=== PATIENT | female | born 1975 | race Caucasian/White ===

== ENCOUNTER 2016-03-18 20:22 | Emergency (ER) | payer MEDICAID ==
[2016-03-18 20:57] VITALS: BMI 38.4
--- NOTE | 2016-03-18 21:35 | EDPRACDOC ---
- General Information Information Source: Patient - History of Present Illness HPI: COUGH, CONGESTION FOR 4 DAYS WITH FEVER LAST NIGHT. SOB. RIGHT SIDE CHEST CHEST PAIN, HEADACHE, NAUSEA. HAD RIGHT EAR SURGERY AT [facility] WITH BONE SHAVING. SINUS SURGERY 2 MONTHS BEFORE EAR SURGERY. H/O COPD. BAD SEASONAL ALLERGIES. GETTING NUCALA LEUKOTRIENE DOROTEO. PT IS REMODELING A HOUSE, THINGS HAVE BEEN IN HOUSE FOR 20 YEARS. <Bhargav Wong - Last Filed: 03/18/16 21:51> <David Bonilla - Last Filed: 03/19/16 00:03> - General Information Chief Complaint: Dyspnea/Resp distress Stated Complaint: SHORTNESS OF BREATH Time Seen by Provider: 03/18/16 21:31 Home Medications: Home Medications Montelukast Sodium [Singulair] 10 mg PO HS 11/03/12 Albuterol Sulfate [Ventolin Hfa] 2 puff INH Q4H PRN 02/24/14 Cetirizine HCl [Zyrtec] 10 mg PO DAILY 03/25/14 Beclomethasone Dipropionate [Qvar] 2 puff INH BID 12/27/15 Fluconazole [Diflucan] 150 mg PO ONCE #1 tab 12/27/15 Lansoprazole [Prevacid] 30 mg PO DAILY 12/27/15 Levofloxacin [Levaquin] 750 mg PO DAILY #5 tablet 12/27/15 Mometasone/Formoterol [Dulera 200 Mcg/5 Mcg Inhaler] 13 gm IH BID 12/27/15 Ondansetron [Zofran Odt] 4 mg PO Q6H PRN #20 tab.rapdis 12/27/15 Albuterol Sulfate [Proair Hfa] 2 puff INH Q2H PRN #1 inhaler 03/18/16 Prednisone [Deltasone, Orasone] 50 mg PO DAILY #5 tab 03/18/16 Oxycodone HCl [Roxicodone] 5 mg PO Q4-6H PRN #15 tablet 03/19/16 Allergies/Adverse Reactions: Allergies Allergy/AdvReac Type Severity Reaction Status Date / Time acetaminophen [From Percocet] Allergy Hives* Verified 03/18/16 20:50 oxycodone [From Percocet] Allergy Hives* Verified 03/18/16 20:50 - Treatment Prior to ED Arrival Reported Medications/Treatment LAYER OUT PLATE GLASS Treated With Medication LAYER OUT PLATE GLASS YES Ibuprofen/Acetaminophen (Dose/ motrin 400 mg @ 1950 Time) Medications LAYER OUT PLATE GLASS (Medication/ albuterol neb treatments (2) @ 1945 Dose/Time) <Bhargav Wong - Last Filed: 03/18/16 21:51> - Treatment Prior to ED Arrival Reported Medications/Treatment LAYER OUT PLATE GLASS Treated With Medication LAYER OUT PLATE GLASS YES Ibuprofen/Acetaminophen (Dose/ motrin 400 mg @ 1950 Time) Medications LAYER OUT PLATE GLASS (Medication/ albuterol neb treatments (2) @ 1945 Dose/Time) <David Bonilla - Last Filed: 03/19/16 00:03> ED Past Medical History - History Reviewed Yes Nurses notes reviewed and agree except as marked - Patient Medical History Respiratory History: Reports: Asthma, COPD (ON HOME O2 2L NC), Chronic Bronchitis, Pneumonia GI/ History: Reports: Gastroesophageal Reflux, Diverticulosis Musculoskeletal History: Reports: Rheumatoid Arthritis (?) Psychological History: Reports: Anxiety. Denies: Depression, Substance Use Disorder Systemic History: Reports: Anemia. Denies: Diabetes Surgical History: Reports: Other (BTL, CSXN) - Family Medical History Reports: Diabetes (Mother-both grandfathers), Cardiac Disorders (grandfathers) - Social Medical History Smoking Status: Former smoker Social History: Denies: Substance Use Disorder <Bhargav Wong - Last Filed: 03/18/16 21:51> EDM Review of Systems - Review of Systems ROS Negative Except as Marked: Yes All systems reviewed and were negative except as marked Constitutional: No Symptoms Reported Mouth: No Symptoms Reported Respiratory: Cough, Shortness of Breath Cardiovascular: Chest Pain Gastrointestinal: No Symptoms Reported Genitourinary: No Symptoms Reported <Bhargav Wong - Last Filed: 03/18/16 21:51> - Physical Exam Constitutional: Alert (Awake), Writhing (RIGHT SIDE CHEST CRAMP STARTED IN ED.) Oriented to: Time, Person, Place Last recorded Vital Signs: Last Vital Signs Temp 99.4 F 03/18/16 20:51 Pulse 137 H 03/18/16 21:17 Resp 23 03/18/16 21:17 BP 131/102 H 03/18/16 21:17 Pulse Ox 98 03/18/16 21:17 Oxygen Pulse Oxygen Saturation 98 O2 Device Room Air Oxygen Flow Rate Fraction of Inspired Oxygen ( FIO2) - HEENT Head: Normal ( normocephalic) Eye Exam: Normal (PERRL, EOMI, Sclera white) Oropharynx: Normal (Pharynx:Moist without exudate,Gums-no swelling) Nose: No Symptoms Reported (septum midline) Neck: Normal (FROM, trachea at midline) - Respiratory/Cardiovascular Respiratory: Wheezes (B/L) Cardiovascular: Tachycardia - GI Auscultation: Normal (NABS) Palpation: Normal (Soft,No rebound or guarding, non distended) Tenderness: Non tender Ovalle's Sign: Negative - Musculoskeletal Back: Normal (Non-Tender) Extremities: Normal (Normal tone, Pulses 2+ No cyanosis or edema, FROM) - Integumentary Skin: Normal, Warm, Dry Lymphatics: Normal (no adenopathy) - Neurologic Memory Impaired: Normal Motor Function: Normal (Normal tone, Pulses 2+ No cyanosis or edema, FROM) Cranial Nerve: Normal (CN II-X11 intact sensation, strength 5/5) Cerebellar: Normal Mood Description: Normal Perception: Normal <Bhargav Wong - Last Filed: 03/18/16 21:51> - Physical Exam Last recorded Vital Signs: Last Vital Signs Temp 99.4 F 03/18/16 20:51 Pulse 104 03/18/16 22:42 Resp 22 03/18/16 22:42 BP 107/59 L 03/18/16 22:42 Pulse Ox 95 03/18/16 22:42 Oxygen Pulse Oxygen Saturation 95 O2 Device Room Air Oxygen Flow Rate Fraction of Inspired Oxygen ( FIO2) <David Bonilla - Last Filed: 03/19/16 00:03> ED SOB MDM - Results Result Diagrams: 03/18/16 21:29 03/18/16 21:29 - EKG EKG #1 EKG Time: 21:48 -: Yes EKG interpreted by me Rate: bpm: 119 [place]: Normal Rhythm: ST Block: None Hypertrophy: None ST: Normal Comments: NORMAL EKG <Bhargav Wong - Last Filed: 03/18/16 21:51> - Results Result Diagrams: 03/18/16 21:29 03/18/16 21:29 Results: WBC 7.7 xk/uL (3.8-10.8) 03/18/16 21:29 RBC 4.94 xM/uL (4.20-5.40) 03/18/16 21:29 Hgb 11.3 g/dL (12.0-16.0) L 03/18/16 21:29 Hct 35.5 % (36-47) L 03/18/16 21:29 MCV 72 fL (81-99) L 03/18/16 21:29 MCH 22.9 pg (27-32) L 03/18/16 21: MCHC 31.9 g/dl (33-36) L 03/18/16 21:29 RDW 17.8 % (11.5-14.5) H 03/18/16 21:29 Plt Count 333 xk/uL (130-400) 03/18/16 21: MPV 7.9 fL (7.4-10.4) 03/18/16 21: Neut % (Auto) 76.7 % (45-76) H 03/18/16 21: Lymph % (Auto) 14.6 % (17-44) L 03/18/16 21: [place] % (Auto) 8.0 % (3-10) 03/18/16 21:29 Eos % (Auto) 0.2 % (0-5) 03/18/16 21:29 Baso % (Auto) 0.5 % (0-2) 03/18/16 21:29 Absolute Neuts (auto) 5.85 xk/uL (1.7-8.2) 03/18/16 21: Absolute Lymphs (auto) 1.08 xk/uL (0.65-4.75) 03/18/16 21:29 Platelet Estimate Norm (NORMAL) 03/18/16 21:29 RBC Morphology 1+ aniso 1+ hypo 1+ micro 03/18/16 21:29 RBC Morphology 1+ aniso 1+ hypo 1+ micro 03/18/16 21:29 RBC Morphology 1+ aniso 1+ hypo 1+ micro 03/18/16 21:29 PT 10.1 SEC (9.2-11.2) 03/18/16 21: INR 1.0 03/18/16 21:29 APTT 25.4 SEC (22-35) 03/18/16 21:29 D-Dimer Quant (PE/DVT) 481 ng/mL (<500) 03/18/16 21:29 Sodium 139 mEq/L (137-146) 03/18/16 21:29 Potassium 3.7 mEq/L (3.5-5.1) 03/18/16 21:29 Chloride 105 mEq/L (98-107) 03/18/16 21:29 Carbon Dioxide 22 mMOL/L (22-33) 03/18/16 21:29 Anion Gap 16 mEq/L (8-16) 03/18/16 21:29 BUN 8 MG/DL (7-17) 03/18/16 21:29 Creatinine 0.80 MG/DL (0.52-1.04) 03/18/16 21:29 Estimated GFR (MDRD) > 60 mL/min (>=60) 03/18/16 21:29 Glucose 109 MG/DL (70-99) H 03/18/16 21:29 Calculated Osmolality 267 MOs/Kg (270-290) L 03/18/16 21:29 Calcium 8.2 MG/DL (8.4-10.2) L 03/18/16 21:29 Corrected Calcium 8.5 MG/DL (8.4-10.2) 03/18/16 21:29 Total Bilirubin 0.4 MG/DL (0.2-1.3) 03/18/16 21:29 AST 23 IU/L (14-36) 03/18/16 21:29 ALT 24 IU/L (9-52) 03/18/16 21:29 Alkaline Phosphatase 93 IU/L (38-126) 03/18/16 21:29 Troponin I < 0.01 ng/mL (<.04) 03/18/16 21:29 [id number]-[id number]-Tigusxlwyox Pept 98 pg/mL (0-450) 03/18/16 21:29 Total Protein 7.1 G/DL (6.3-8.2) 03/18/16 21:29 Albumin 3.7 G/DL (3.5-5.0) 03/18/16 21:29 Lab Results 03/18/16 03/18/16 03/18/16 21:29 21:29 21:29 WBC 7.7 RBC 4.94 Hgb 11.3 L Hct 35.5 L MCV 72 L MCH 22.9 L MCHC 31.9 L RDW 17.8 H Plt Count 333 MPV 7.9 Neut % (Auto) 76.7 H Lymph % (Auto) 14.6 L [place] % (Auto) 8.0 Eos % (Auto) 0.2 Baso % (Auto) 0.5 Absolute Neuts (auto) 5.85 Absolute Lymphs (auto) 1.08 Platelet Estimate Norm RBC Morphology 1+ micro PT 10.1 INR 1.0 APTT 25.4 D-Dimer Quant (PE/DVT) 481 Sodium Potassium Chloride Carbon Dioxide Anion Gap BUN Creatinine Estimated GFR (MDRD) Glucose Calculated Osmolality Calcium Corrected Calcium Total Bilirubin AST ALT Alkaline Phosphatase Troponin I [id number]-Otzogtzzwsj Pept Total Protein Albumin 03/18/16 21:29 WBC RBC Hgb Hct MCV MCH MCHC RDW Plt Count MPV Neut % (Auto) Lymph % (Auto) [place] % (Auto) Eos % (Auto) Baso % (Auto) Absolute Neuts (auto) Absolute Lymphs (auto) Platelet Estimate RBC Morphology PT INR APTT D-Dimer Quant (PE/DVT) Sodium 139 Potassium 3.7 Chloride 105 Carbon Dioxide 22 Anion Gap 16 BUN 8 Creatinine 0.80 Estimated GFR (MDRD) > 60 Glucose 109 H Calculated Osmolality 267 L Calcium 8.2 L Corrected Calcium 8.5 Total Bilirubin 0.4 AST 23 ALT 24 Alkaline Phosphatase 93 Troponin I < 0.01 Xzr-[id number]-Whxccuajsvm Pept 98 Total Protein 7.1 Albumin 3.7 <David Bonilla - Last Filed: 03/19/16 00:03> - Departure Yes I personally saw and evaluated the patient. Disposition: Home <Bhargav Wong - Last Filed: 03/18/16 21:51> Decision Time to Discharge: 23:58 - Departure Yes I personally saw and evaluated the patient. Disposition: Home Education/Counseling Given To: Patient Education/Counseling Given Regarding: Diagnosis, Treatment, Prognosis, Follow Up <David Bonilla - Last Filed: 03/19/16 00:03> - Departure Condition: Stable Final Diagnosis: Acute exacerbation of chronic obstructive airways disease, Febrile illness Instructions: COPD (Chronic Obstructive Pulmonary Disease) (ED) Referrals: Keri Ruiz MD [Primary Care Provider] - Call for Appointment Prescriptions: Albuterol Sulfate [Proair Hfa] 2 puff INH Q2H PRN #1 inhaler PRN Reason: Dyspnea Oxycodone HCl [Roxicodone] 5 mg PO Q4-6H PRN #15 tablet PRN Reason: Breakthrough Pain Prednisone [Deltasone, Orasone] 50 mg PO DAILY #5 tab
[2016-03-18] MEDS ORDERED: METHYLPREDNISOLONE 125 MG/2 ML VIAL IV ONE (21:38)
[2016-03-18 21:45] LABS: AUTOMATED BASOPHIL 0.5 % (0-2); AUTOMATED EOSINOPHIL 0.2 % (0-5); AUTOMATED LYMPH 14.6 % (17-44); AUTOMATED NEUTROPHIL 76.7 % (45-76); MPV 7.9 fL (7.4-10.4)
[2016-03-18] MEDS ORDERED: HYDROmorphone 1 MG INJECTION IV ONE (21:46)
[2016-03-18 21:55] LABS: PARTIAL THROMB. TIME 25.4 SEC (22-35)
[2016-03-18 21:58] LABS: BLOOD UREA NITROGEN 8 MG/DL (7-17); CALC CORRECTED 8.5 MG/DL (8.4-10.2); CALCIUM 8.2 MG/DL (8.4-10.2); CALCULATED OSMOLALITY 267 MOs/Kg (270-290); CHLORIDE 105 mEq/L (98-107); GLUCOSE 109 MG/DL (70-99); SODIUM LEVEL 139 mEq/L (137-146); TOTAL PROTEIN 7.1 G/DL (6.3-8.2)
--- NOTE | 2016-03-18 21:59 | DIRPT ---
CLINICAL DATA: Patient with shortness of breath. COPD. Fever. EXAM: PORTABLE CHEST 1 VIEW COMPARISON: Chest radiograph 12/27/2015 FINDINGS: Stable cardiac and mediastinal contours. No consolidative pulmonary opacities. No pleural effusion or pneumothorax. Regional skeleton is unremarkable. IMPRESSION: No acute cardiopulmonary process. Electronically Signed By: Romeo Thomason M.D. On: 03/18/2016 21:56
--- NOTE | 2016-03-18 23:46 | DIRPT ---
CLINICAL DATA: Acute onset of dyspnea, fever and generalized chest pain and tightness. Cough and nasal congestion. Initial encounter. EXAM: CT CHEST WITHOUT CONTRAST TECHNIQUE: Multidetector CT imaging of the chest was performed following the standard protocol without IV contrast. COMPARISON: CT of the chest performed 12/27/2015, and chest radiograph performed earlier today at 9:38 p.m. FINDINGS: Mild bilateral atelectasis or scarring is noted. The lungs are otherwise clear. No pleural effusion or pneumothorax is seen. No masses are identified. The mediastinum is grossly unremarkable in appearance. No mediastinal lymphadenopathy is seen. No pericardial effusion is identified. The great vessels are grossly unremarkable in appearance. The visualized portions of the thyroid gland are unremarkable. No axillary lymphadenopathy is seen. The visualized portions of the liver and spleen are grossly unremarkable. The visualized portions of the gallbladder, pancreas and adrenal glands are within normal limits. No acute osseous abnormalities are identified. IMPRESSION: Mild bibasilar atelectasis or scarring noted. Lungs otherwise clear. Electronically Signed By: Chuck Petersen M.D. On: 03/18/2016 23:44
[2016-03-19 00:24] VITALS: BP 113/66; PULSE 100; TEMP 98.7
== END 2016-03-19 00:22 | disposition home or self-care (01) ==
LOC: ED 20:22
DX: J44.1 Chronic obstructive pulmonary disease with (acute) exacerbation (principal); R05 Cough
CPT/HCPCS: 36415; 71010; 71250; 80053; 83880; 84484; 85025; 85379; 85610; 85730; 93005; 96374; 96375; 99284; J1170; J2930